=== PATIENT | male | born 1990 | race Caucasian/White ===

== ENCOUNTER 2019-06-26 17:39 | Emergency (ER) | payer SELFPAY ==
--- NOTE | 2019-06-26 17:45 | NUR ---
called to triage,no answer
--- NOTE | 2019-06-26 18:28 | NUR ---
CALLED IN ED WAITING ROOM. NO ANSWER.
== END 2019-06-26 18:30 | disposition left against medical advice (07) ==
LOC: ER 17:40
DX: J11.1 Influenza due to unidentified influenza virus with other respiratory manifestations (principal); Z53.21 Procedure and treatment not carried out due to patient leaving prior to being seen by health care provider

== ENCOUNTER 2020-10-05 12:03 | Emergency (ER) | payer SELFPAY ==
[~2020-10-05] VITALS: Ht 188 cm; Wt 104.3 kg
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
--- NOTE | 2020-10-05 13:35 | NUR ---
Patient discharged to home in stable condition. Written and verbal after care instructions given. Patient verbalizes understanding of instruction.
[2020-10-05 13:37] VITALS: BP 123/69
== END 2020-10-05 13:39 | disposition home or self-care (01) ==
LOC: ER 12:05
DX: S06.0X0A Concussion without loss of consciousness, initial encounter (principal); S00.01XA Abrasion of scalp, initial encounter; R41.3 Other amnesia; R51.9 Headache, unspecified; V49.49XA Driver injured in collision with other motor vehicles in traffic accident, initial encounter; Y93.89 Activity, other specified; Y92.488 Other paved roadways as the place of occurrence of the external cause; Y99.8 Other external cause status
CPT/HCPCS: 70450-TC; 72050-TC